=== PATIENT | female | born 1955 | race Caucasian/White ===

== ENCOUNTER 2017-09-03 14:48 | Observation (INO) | payer MEDICAID ==
[~2017-09-03] VITALS: Ht 157.5 cm; Wt 65.8 kg
[~2017-09-03 14:48] MED LIST: ALBU0.084; ATEN50TA PO; CARI250T; ENAL5TAB85; FLUT100M7; HYDR-4683; LOSA100T22 PO; MECL12.554
[2017-09-03] MEDS ORDERED: LEVOFLOXACIN 500MG 100 ML IV ONE (15:30)
[2017-09-03] MEDS ORDERED: ALBUTEROL SULF 2.5 MG/0.5ML(0.5%) NEB SOLN HHN ONE (15:30)
[2017-09-03] MEDS ORDERED: cefTRIAXone 1GM/10ml IVPUSH 10 ML IV ONE (15:30)
[2017-09-03] MEDS ORDERED: methylPREDNISolone SOD SUCC 125 MG/2 ML VL IV ONE (15:30)
[2017-09-03] MEDS ORDERED: IPRATROPIUM BROM 0.5 MG/2.5ML INH SOL HHN ONE (15:30)
[2017-09-03 16:20] LABS: Basophils # (auto) 0 uL; Basophils % (auto) 0.1 % (0.0-2.0); Eosinophils # (auto) 0 uL; Hematocrit 44.7 % (36.0-46.0); Hemoglobin 14.9 g/dL (12.2-16.2); Lymphocytes # (auto) 0.5 uL; Mean Corpuscular Hemoglobin 33.4 pg (28.0-32.0); Mean Corpuscular Hgb Conc. 33.4 g/dL (32.0-36.0); Monocytes # (auto) 0.3 uL; Monocytes % (auto) 4.6 % (0.0-12.0); Neutrophils # (auto) 6.2 uL; Neutrophils % (auto) 88.3 % (37.0-80.0); Platelet Count (auto) 162 10^3/uL (140-450); White Blood Cell 7.1 10^3/uL (4.4-10.8)
[2017-09-03 16:40] LABS: B-Type Natriuretic Peptide 97.47 pg/mL (0-100)
[2017-09-03 16:46] LABS: Anion Gap 9 (5-15); Carbon Dioxide 21 mmol/L (21-32); Chloride 106 mmol/L (98-107); Potassium 4.8 mmol/L (3.5-5.1); Sodium 136 mmol/L (136-145)
[2017-09-03 16:47] LABS: Alkaline Phosphatase 75 U/L (45-117); Aspartate Aminotransferase 38 U/L (15-37); BUN/Creatinine Ratio 28.9; Blood Urea Nitrogen 24 mg/dL (7-18); GFR African American 90 mL/min; GFR Non-African American 74 mL/min; Glucose 125 mg/dL (74-106)
[2017-09-03 16:48] LABS: Albumin 3.3 g/dL (3.4-5.0); Bilirubin, Total 0.3 mg/dL (0.2-1.0); Calcium 8.2 mg/dL (8.5-10.1); Magnesium 2.1 mg/dL (1.6-2.6); Total Protein 7.3 g/dL (6.4-8.2)
[2017-09-03 16:55] LABS: Temperature: 23.1 C (20.0-25.0)
[2017-09-03 17:49] VITALS: BP 109/47
[2017-09-03] MEDS ORDERED: ACETAMINOPHEN 650 mg PER 20 mL UD PO ONE (18:30)
[2017-09-03] MEDS ORDERED: ACETAMINOPHEN 325 MG TAB PO ONE (18:30)
== END 2017-09-03 19:06 | disposition home or self-care (01) | DRG 143 ==
LOC: EDBD 14:48 → ER 14:55 → OVERFLOW 15:22 → ER 19:05
PROVIDERS: ADMIT Family Medicine; ATTEND Family Medicine
DX: J80 Acute respiratory distress syndrome (principal); J44.1 Chronic obstructive pulmonary disease with (acute) exacerbation; I10 Essential (primary) hypertension; I70.0 Atherosclerosis of aorta; F32.9 Major depressive disorder, single episode, unspecified; Z82.49 Family history of ischemic heart disease and other diseases of the circulatory system; Z87.891 Personal history of nicotine dependence; Z98.51 Tubal ligation status
CPT/HCPCS: 36415; 71010; 80053; 83605; 83735; 83880; 84484; 85025; 85379; 87040; 94640; 96365; 96375; 99285; G0378; J1956; J2930

== ENCOUNTER 2022-12-19 14:58 | Inpatient (IN) | payer OTHER ==
[~2022-12-19] VITALS: Ht 157.5 cm; Wt 59.8 kg
[~2022-12-19 14:58] MED LIST changes: -HYDR-4683; +HYDR-4833; +MECL12.514; -MECL12.554
[2022-12-19] MEDS: HYDROcodone-ACET 5/325MG TAB PO PRN (21:00)
[2022-12-19] MEDS ORDERED: ALBUTEROL SULF 2.5 MG/0.5ML(0.5%) NEB SOLN NEB PRN (21:00)
[2022-12-19 22:00] VITALS: BP 130/61
[2022-12-19] MEDS ORDERED: CARISOPRODOL 350 MG TAB PO PRN (23:00)
[2022-12-19] MEDS ORDERED: ONDANSETRON HCL 4 MG/2 ML VIAL IV PRN (23:00)
[2022-12-19] MEDS ORDERED: HYDROcodone-ACET 5/325MG TAB PO PRN (23:00)
[2022-12-19] MEDS ORDERED: SODIUM CHLORIDE 0.9% 1,000 ML IV SCH (23:00)
[2022-12-19] MEDS ORDERED: DOCUSATE SOD 100 MG CAP PO PRN (23:00)
[2022-12-19 23:38] VITALS: BP 130/61
[2022-12-20] MEDS: IPRATROPIUM BROM 0.5 MG/2.5ML INH SOL NEB PRN (00:10)
[2022-12-20] MEDS: LEVALBUTEROL HCL 1.25 MG/3 ML NEB NEB SCH ×5 (00:10→23:25)
[2022-12-20] MEDS: methylPREDNISolone SOD SUCC 40 MG/ML VL IV SCH ×5 (00:24→23:27)
[2022-12-20 05:00] VITALS: BP 147/65
[2022-12-20] MEDS ORDERED: CARISOPRODOL 350 MG TAB PO PRN (05:15)
[2022-12-20 05:51] LABS: Basophils # (auto) 0 10 ^3/uL (0-0.2); Basophils % (auto) 0.1 % (0.0-2.0); Eosinophils # (auto) 0 10 ^3/uL (0-0.8); Lymphocytes # (auto) 0.6 10 ^3/uL (0.4-5.4); Monocytes # (auto) 0.4 10 ^3/uL (0-1.3); Monocytes % (auto) 2.6 % (0.0-12.0); Nucleated Red Blood Cells % 0.2 %
[2022-12-20 05:54] LABS: Hematocrit 44.4 % (36.0-46.0); Hemoglobin 13.2 g/dL (12.2-16.2); Lymphocytes % (auto) 4.4 % (10.0-50.0); Mean Corpuscular Hgb Conc. 29.8 g/dL (32.0-36.0); Neutrophils # (auto) 13.1 10 ^3/uL (1.6-8.6); Neutrophils % (auto) 92.9 % (37.0-80.0); Red Blood Cells 5.29 10^6/uL (4.0-5.20); Red Cell Distribution Width 17.6 % (11.8-14.3); White Blood Cell 14.1 10^3/uL (4.4-10.8)
[2022-12-20 06:10] LABS: Calcium 9.3 mg/dL (8.5-10.1); Potassium 4.7 mmol/L (3.5-5.1)
[2022-12-20 06:13] LABS: BUN/Creatinine Ratio 39.7 (10.0-20.0)
[2022-12-20 06:16] LABS: Bilirubin, Total 0.4 mg/dL (0.2-1.0); Total Protein 7.3 g/dL (6.4-8.2)
[2022-12-20 07:12] LABS: Urine WBC None Seen /hpf (0 - 5)
[2022-12-20 07:31] LABS: Urine Bacteria NONE SEEN /hpf (None Seen); Urine Blood Negative /uL (Negative); Urine Hyaline Cast FEW /lpf (0 - 2); Urine Mucus FEW (None Seen); Urine Specific Gravity 1.025 (1.001-1.035)
[2022-12-20 08:44] VITALS: BP 136/54
[2022-12-20] MEDS: cefTRIAXone 1GM/50ML D5W 50 ML IV SCH (09:05)
[2022-12-20] MEDS: ASPirin 81 mg TAB PO SCH (09:45)
[2022-12-20] MEDS: PANTOPRAZOLE 40 MG TAB PO SCH (09:45)
[2022-12-20] MEDS ORDERED: amLODIPine BESYLATE 5 MG TAB PO SCH (10:00)
[2022-12-20] MEDS ORDERED: ENOXAPARIN SOD 40 MG/0.4 ML SYRINGE SC SCH (10:00)
[2022-12-20] MEDS ORDERED: FUROSEMIDE 40 MG/4 ML VIAL IV ONE (11:15)
[2022-12-20 12:17] VITALS: BP 176/65
[2022-12-20] MEDS ORDERED: IOHEXOL 350 MG/ML 100ML IJ ONE (13:04)
[2022-12-20] MEDS: METOPROLOL TARTRATE 25 MG TAB PO SCH ×2 (13:07→22:00)
[2022-12-20] MEDS: HYDROcodone-ACET 5/325MG TAB PO PRN ×2 (13:35→20:55)
[2022-12-20 13:40] VITALS: BP 131/82
[2022-12-20] MEDS ORDERED: ADENOSINE 6 MG/2 ML INJ IV ONE (13:45)
[2022-12-20] MEDS ORDERED: METOPROLOL TARTRATE 1MG/1ML-5ML VIAL IV ONE (13:50)
[2022-12-20] MEDS ORDERED: dilTIAZem 25 MG/5 ML VIAL IV ONE ×2 (14:02→14:15)
[2022-12-20] MEDS ORDERED: dilTIAZem HCL 60 MG TAB PO ONE (14:15)
[2022-12-20] MEDS ORDERED: HEPARIN SODIUM (PORCINE) 5000 UNITS/ML 1ML VIAL IV ONE ×2 (14:45→23:30)
[2022-12-20] MEDS ORDERED: HEPARIN DRIP/D5W 100UNITS/ML 250 ML IV SCH ×2 (14:45→23:30)
[2022-12-20] MEDS ORDERED: dilTIAZem HCL 60 MG TAB ONE (14:55)
[2022-12-20 15:23] LABS: Basophils # (auto) 0 10 ^3/uL (0-0.2); Eosinophils # (auto) 0 10 ^3/uL (0-0.8); Hemoglobin 12.7 g/dL (12.2-16.2); Lymphocytes # (auto) 0.3 10 ^3/uL (0.4-5.4); Monocytes # (auto) 0.4 10 ^3/uL (0-1.3); Monocytes % (auto) 4.7 % (0.0-12.0); Red Cell Distribution Width 17.6 % (11.8-14.3)
[2022-12-20 15:25] LABS: Basophils % (auto) 0.1 % (0.0-2.0); Hematocrit 41.8 % (36.0-46.0); Lymphocytes % (auto) 3.7 % (10.0-50.0); Mean Corpuscular Hemoglobin 24.7 pg (28.0-32.0); Mean Corpuscular Hgb Conc. 30.4 g/dL (32.0-36.0); Mean Corpuscular Volume 81.3 fL (80.0-100.0); Neutrophils # (auto) 8.6 10 ^3/uL (1.6-8.6); Neutrophils % (auto) 91.5 % (37.0-80.0); Nucleated Red Blood Cells % 0.3 %; Red Blood Cells 5.14 10^6/uL (4.0-5.20); White Blood Cell 9.4 10^3/uL (4.4-10.8)
[2022-12-20 16:24] LABS: INR 1.02 (0.9-1.15); Partial Thromboplastin Time 27.1 sec (24.6-33.4)
[2022-12-20 16:37] VITALS: BP 127/61
[2022-12-20] MEDS: dilTIAZem HCL 60 MG TAB PO SCH ×2 (17:03→23:27)
[2022-12-20] MEDS: dilTIAZem 25 MG/5 ML VIAL IV PRN (20:38)
[2022-12-20 22:00] VITALS: BP 120/46
[2022-12-20 23:14] LABS: INR 1.03 (0.9-1.15); Partial Thromboplastin Time 30.1 sec (24.6-33.4)
[2022-12-21] MEDS ORDERED: HEPARIN SODIUM (PORCINE) 5000 UNITS/ML 1ML VIAL IV ONE
[2022-12-21 05:00] VITALS: BP 142/56
[2022-12-21] MEDS: methylPREDNISolone SOD SUCC 40 MG/ML VL IV SCH ×4 (06:18→23:43)
[2022-12-21] MEDS: METOPROLOL TARTRATE 25 MG TAB PO SCH ×3 (06:18→22:37)
[2022-12-21] MEDS: dilTIAZem HCL 60 MG TAB PO SCH ×4 (06:18→23:44)
[2022-12-21 06:36] LABS: Basophils # (auto) 0 10 ^3/uL (0-0.2); Eosinophils # (auto) 0 10 ^3/uL (0-0.8); Lymphocytes # (auto) 0.4 10 ^3/uL (0.4-5.4)
[2022-12-21 06:39] LABS: Hematocrit 41.6 % (36.0-46.0); Hemoglobin 13.1 g/dL (12.2-16.2); Mean Corpuscular Hemoglobin 25.6 pg (28.0-32.0); Mean Corpuscular Hgb Conc. 31.5 g/dL (32.0-36.0); Mean Corpuscular Volume 81.4 fL (80.0-100.0); Monocytes # (auto) 0.3 10 ^3/uL (0-1.3); Monocytes % (auto) 3.2 % (0.0-12.0); Neutrophils # (auto) 9.8 10 ^3/uL (1.6-8.6); Neutrophils % (auto) 92.8 % (37.0-80.0); Nucleated Red Blood Cells % 0.1 %; Red Blood Cells 5.11 10^6/uL (4.0-5.20); Red Cell Distribution Width 17.5 % (11.8-14.3); White Blood Cell 10.6 10^3/uL (4.4-10.8)
[2022-12-21 06:45] LABS: BUN/Creatinine Ratio 51.7 (10.0-20.0); Calcium 9.3 mg/dL (8.5-10.1); Magnesium 2.2 mg/dL (1.6-2.6); Potassium 4.7 mmol/L (3.5-5.1)
[2022-12-21] MEDS: LEVALBUTEROL HCL 1.25 MG/3 ML NEB NEB SCH ×3 (06:55→18:17)
[2022-12-21] MEDS: IPRATROPIUM BROM 0.5 MG/2.5ML INH SOL NEB PRN ×3 (06:55→18:15)
[2022-12-21 07:06] LABS: INR 1.05 (0.9-1.15)
[2022-12-21 07:16] LABS: Partial Thromboplastin Time 134.1 sec (24.6-33.4)
[2022-12-21 08:30] VITALS: BP 148/70
[2022-12-21] MEDS: cefTRIAXone 1GM/50ML D5W 50 ML IV SCH (08:37)
[2022-12-21 08:58] VITALS: BP 137/62
[2022-12-21] MEDS: PANTOPRAZOLE 40 MG TAB PO SCH (10:18)
[2022-12-21] MEDS: ASPirin 81 mg TAB PO SCH (10:18)
[2022-12-21] MEDS: FUROSEMIDE 40 MG/4 ML VIAL IV SCH (10:19)
[2022-12-21] MEDS: HYDROcodone-ACET 5/325MG TAB PO PRN ×3 (10:26→22:51)
[2022-12-21] MEDS ORDERED: AZITHROMYCIN 500MG/ 250ML 250 ML IV ONE (10:45)
[2022-12-21 10:54] LABS: Partial Thromboplastin Time 43.5 sec (24.6-33.4)
[2022-12-21] MEDS: DOXYCYCLINE 100MG/250ML 250 ML IV SCH ×2 (12:19→22:39)
[2022-12-21 13:24] VITALS: BP 112/59
[2022-12-21 16:35] LABS: INR 1.01 (0.9-1.15); Partial Thromboplastin Time 42.8 sec (24.6-33.4)
[2022-12-21 17:07] VITALS: BP 134/77
[2022-12-21] MEDS ORDERED: HEPARIN DRIP/D5W 100UNITS/ML 250 ML IV SCH (17:45)
[2022-12-21 22:00] VITALS: BP 128/62
[2022-12-21] MEDS: dilTIAZem 25 MG/5 ML VIAL IV PRN (22:38)
[2022-12-22] VITALS (7 sets, daily range): BP systolic 124–145; BP diastolic 49–74
[2022-12-22] MEDS: IPRATROPIUM BROM 0.5 MG/2.5ML INH SOL NEB PRN ×3 (00:51→18:48)
[2022-12-22] MEDS: LEVALBUTEROL HCL 1.25 MG/3 ML NEB NEB SCH ×4 (00:51→18:49)
[2022-12-22 05:42] LABS: Basophils # (auto) 0 10 ^3/uL (0-0.2); Eosinophils # (auto) 0 10 ^3/uL (0-0.8); Hematocrit 42.4 % (36.0-46.0); Hemoglobin 12.8 g/dL (12.2-16.2); Lymphocytes # (auto) 0.4 10 ^3/uL (0.4-5.4); Mean Corpuscular Hgb Conc. 30.2 g/dL (32.0-36.0); Mean Corpuscular Volume 82.9 fL (80.0-100.0); Monocytes # (auto) 0.5 10 ^3/uL (0-1.3); Monocytes % (auto) 4.7 % (0.0-12.0); Neutrophils # (auto) 10.2 10 ^3/uL (1.6-8.6); Neutrophils % (auto) 91.3 % (37.0-80.0); Nucleated Red Blood Cells % 0.1 %; Red Blood Cells 5.12 10^6/uL (4.0-5.20); Red Cell Distribution Width 17.3 % (11.8-14.3); White Blood Cell 11.2 10^3/uL (4.4-10.8)
[2022-12-22 05:56] LABS: INR 1.02 (0.9-1.15); Partial Thromboplastin Time 62.9 sec (24.6-33.4)
[2022-12-22 05:57] LABS: Calcium 9.5 mg/dL (8.5-10.1); Magnesium 2.1 mg/dL (1.6-2.6); Potassium 5.1 mmol/L (3.5-5.1)
[2022-12-22] MEDS: methylPREDNISolone SOD SUCC 40 MG/ML VL IV SCH ×3 (06:08→17:58)
[2022-12-22] MEDS: dilTIAZem HCL 60 MG TAB PO SCH ×4 (06:09→23:43)
[2022-12-22] MEDS: METOPROLOL TARTRATE 25 MG TAB PO SCH ×3 (06:09→22:05)
[2022-12-22] MEDS: HYDROcodone-ACET 5/325MG TAB PO PRN ×3 (07:10→23:42)
[2022-12-22] MEDS: cefTRIAXone 1GM/50ML D5W 50 ML IV SCH (08:21)
[2022-12-22] MEDS: PANTOPRAZOLE 40 MG TAB PO SCH (09:51)
[2022-12-22] MEDS: ASPirin 81 mg TAB PO SCH (09:52)
[2022-12-22] MEDS: FUROSEMIDE 40 MG/4 ML VIAL IV SCH (09:52)
[2022-12-22] MEDS ORDERED: AZITHROMYCIN 500MG/ 250ML 250 ML IV SCH (10:00)
[2022-12-22] MEDS ORDERED: APIXABAN 5 MG TAB PO ONE (10:30)
[2022-12-22] MEDS: DOXYCYCLINE 100MG/250ML 250 ML IV SCH ×2 (11:01→22:05)
[2022-12-22 13:27] LABS: INR 1.06 (0.9-1.15); Partial Thromboplastin Time 53.3 sec (24.6-33.4)
[2022-12-22] MEDS: ACETYLCYSTEINE 10 %(100MG/ML) SOL 4ML NEB SCH ×2 (14:16→18:49)
[2022-12-22 16:14] LABS: Free T4 (Free Thyroxine) 1.04 ng/dL (0.89-1.76); T3 Total 0.78 ng/mL (0.60-1.81)
[2022-12-22 16:25] LABS: Folate (Folic Acid) 11.79 ng/mL (5.38-24)
[2022-12-22 20:04] LABS: Alcohol, Urine < 3.0 mg/dL (0-10); Amphetamine Screen, Urine NEGATIVE (NEGATIVE); Barbiturate Scree,Urine NEGATIVE (NEGATIVE); Benzodiazephine Screen, Urine NEGATIVE (NEGATIVE); Cannabinoid Screen, Urine NEGATIVE (NEGATIVE); Cocaine Screen, Urine NEGATIVE (NEGATIVE); Opiate Scree,Urine NEGATIVE (NEGATIVE); Phencyclidine Screen, Urine NEGATIVE (NEGATIVE)
[2022-12-22] MEDS: APIXABAN 5 MG TAB PO SCH (22:05)
[2022-12-23] VITALS (35 sets, daily range): BP systolic 113–212; BP diastolic 61–138
[2022-12-23] MEDS: IPRATROPIUM BROM 0.5 MG/2.5ML INH SOL NEB PRN ×3 (00:23→11:51)
[2022-12-23] MEDS: HYDROcodone-ACET 5/325MG TAB PO PRN ×3 (04:53→19:05)
[2022-12-23] MEDS: methylPREDNISolone SOD SUCC 40 MG/ML VL IV SCH ×5 (05:58→23:28)
[2022-12-23] MEDS: METOPROLOL TARTRATE 25 MG TAB PO SCH ×3 (05:59→21:02)
[2022-12-23] MEDS: dilTIAZem HCL 60 MG TAB PO SCH ×4 (05:59→23:36)
[2022-12-23 06:15] LABS: Basophils # (auto) 0 10 ^3/uL (0-0.2); Eosinophils # (auto) 0 10 ^3/uL (0-0.8); Monocytes # (auto) 0.3 10 ^3/uL (0-1.3); Nucleated Red Blood Cells % 0.2 %
[2022-12-23 06:18] LABS: Hematocrit 43.8 % (36.0-46.0); Hemoglobin 13.2 g/dL (12.2-16.2); Lymphocytes # (auto) 0.4 10 ^3/uL (0.4-5.4); Lymphocytes % (auto) 6.7 % (10.0-50.0); Mean Corpuscular Hemoglobin 24.8 pg (28.0-32.0); Mean Corpuscular Hgb Conc. 30.2 g/dL (32.0-36.0); Monocytes % (auto) 4.3 % (0.0-12.0); Neutrophils # (auto) 5.8 10 ^3/uL (1.6-8.6); Red Blood Cells 5.33 10^6/uL (4.0-5.20); Red Cell Distribution Width 17.8 % (11.8-14.3); White Blood Cell 6.5 10^3/uL (4.4-10.8)
[2022-12-23] MEDS: LEVALBUTEROL HCL 1.25 MG/3 ML NEB NEB SCH ×5 (06:38→21:31)
[2022-12-23] MEDS: ACETYLCYSTEINE 10 %(100MG/ML) SOL 4ML NEB SCH ×5 (06:38→21:31)
[2022-12-23 06:43] LABS: Albumin 3.1 g/dL (3.4-5.0); BUN/Creatinine Ratio 48.1 (10.0-20.0); Bilirubin, Total 0.5 mg/dL (0.2-1.0); Calcium 9.5 mg/dL (8.5-10.1); Magnesium 2.1 mg/dL (1.6-2.6); Phosphorus 2.6 mg/dL (2.5-4.90); Total Protein 7.5 g/dL (6.4-8.2)
[2022-12-23 07:36] LABS: Potassium 4.1 mmol/L (3.5-5.1)
[2022-12-23] MEDS: cefTRIAXone 1GM/50ML D5W 50 ML IV SCH (08:00)
[2022-12-23] MEDS: PANTOPRAZOLE 40 MG TAB PO SCH (09:23)
[2022-12-23] MEDS: APIXABAN 5 MG TAB PO SCH ×2 (09:23→21:02)
[2022-12-23] MEDS: ASPirin 81 mg TAB PO SCH (09:23)
[2022-12-23] MEDS: FUROSEMIDE 40 MG/4 ML VIAL IV SCH (09:23)
[2022-12-23] MEDS: DOXYCYCLINE 100MG/250ML 250 ML IV SCH ×2 (10:34→23:28)
[2022-12-23] MEDS: dilTIAZem 25 MG/5 ML VIAL IV PRN (13:59)
[2022-12-23] MEDS ORDERED: ADENOSINE 6 MG/2 ML INJ IV ONE (14:45)
[2022-12-23] MEDS ORDERED: AMIODARONE HCL 150 MG in D5W 5% 100 ML IV ONE (14:50)
[2022-12-23] MEDS ORDERED: AMIODARONE 450mg/250ml AE 250 ML IV ONE (14:52)
[2022-12-23] MEDS ORDERED: AMIODARONE 450mg/250ml AE 250 ML IV SCH (15:15)
[2022-12-23] MEDS ORDERED: PROMETHAZINE HCL 25 MG/ML 1ML IV ONE (15:30)
[2022-12-23] MEDS ORDERED: MIDAZOLAM HCL 2MG/2ML 2ml VIAL (1mg/ml) IV ONE (16:00)
[2022-12-23] MEDS ORDERED: LIDOCAINE VISCOUS 2% 15ML UD MT ONE (16:00)
[2022-12-23] MEDS ORDERED: fentaNYL CITRATE 100 MCG/2 ML VL IV ONE (16:00)
[2022-12-23] MEDS ORDERED: LIDOCAINE VISCOUS 2% 15ML UD ONE (16:05)
[2022-12-23] MEDS ORDERED: fentaNYL CITRATE 100 MCG/2 ML VL ONE (16:05)
[2022-12-23] MEDS ORDERED: MIDAZOLAM HCL 2MG/2ML 2ml VIAL (1mg/ml) ONE (16:05)
[2022-12-23] MEDS ORDERED: DIGOXIN (250MCG/ML) 2 ML AMPULE ONE (16:18)
[2022-12-23] MEDS ORDERED: FLUMAZENIL 0.1 MG/ML INJ 10ML MDV IV ONE (16:19)
[2022-12-23] MEDS ORDERED: NALOXONE HCL 0.4 MG/ML VIAL ONE (16:19)
[2022-12-23] MEDS ORDERED: NALOXONE HCL 0.4 MG/ML VIAL IV ONE (16:30)
[2022-12-23] MEDS ORDERED: DIGOXIN (250MCG/ML) 2 ML AMPULE IV ONE (16:30)
[2022-12-23] MEDS: AMIODARONE 450mg/250ml AE 250 ML IV SCH (21:15)
[2022-12-23] MEDS: hydrALAZINE HCL 20 MG/ML VL IV PRN (21:41)
[2022-12-23] MEDS: CARISOPRODOL 350 MG TAB PO SCH (21:59)
[2022-12-23] MEDS ORDERED: CARISOPRODOL 350 MG TAB PO SCH (22:00)
[2022-12-23] MEDS ORDERED: TEMAZEPAM 15 MG CAP PO ONE (23:30)
[2022-12-24] VITALS (92 sets, daily range): BP systolic 72–180; BP diastolic 39–98
[2022-12-24] MEDS ORDERED: ETOMIDATE (2MG/ML) 20ML VIAL IV ONE ×2 (01:09→01:15)
[2022-12-24] MEDS ORDERED: SUCCINYLCHOLINE CHLORIDE 20 MG/ML 10ML VIAL IV ONE ×2 (01:10→01:15)
[2022-12-24] MEDS: MIDAZOLAM DRIP 50 mg/50mL 50 ML IV SCH ×6 (01:30→22:31)
[2022-12-24] MEDS ORDERED: MIDAZOLAM DRIP 50 mg/50mL 50 ML IV ONE (01:34)
[2022-12-24] MEDS: dilTIAZem 25 MG/5 ML VIAL IV PRN ×2 (03:39→23:18)
[2022-12-24 05:42] LABS: Basophils # (auto) 0 10 ^3/uL (0-0.2); Basophils % (auto) 0.3 % (0.0-2.0); Eosinophils # (auto) 0 10 ^3/uL (0-0.8); Hematocrit 43.9 % (36.0-46.0); Hemoglobin 13.2 g/dL (12.2-16.2); Lymphocytes # (auto) 0.2 10 ^3/uL (0.4-5.4); Lymphocytes % (auto) 2.4 % (10.0-50.0); Mean Corpuscular Hemoglobin 24.6 pg (28.0-32.0); Mean Corpuscular Hgb Conc. 30.1 g/dL (32.0-36.0); Mean Corpuscular Volume 81.7 fL (80.0-100.0); Neutrophils # (auto) 7.7 10 ^3/uL (1.6-8.6); Neutrophils % (auto) 86.3 % (37.0-80.0); Nucleated Red Blood Cells % 0.1 %; Red Blood Cells 5.37 10^6/uL (4.0-5.20); Red Cell Distribution Width 17.7 % (11.8-14.3); White Blood Cell 8.9 10^3/uL (4.4-10.8)
[2022-12-24] MEDS: methylPREDNISolone SOD SUCC 40 MG/ML VL IV SCH ×4 (05:50→23:16)
[2022-12-24] MEDS: dilTIAZem HCL 60 MG TAB PO SCH ×3 (05:51→18:00)
[2022-12-24] MEDS: METOPROLOL TARTRATE 25 MG TAB PO SCH ×3 (05:51→22:20)
[2022-12-24 05:59] LABS: BUN/Creatinine Ratio 59.6 (10.0-20.0); Calcium 9.7 mg/dL (8.5-10.1); Potassium 3.3 mmol/L (3.5-5.1)
[2022-12-24] MEDS: IPRATROPIUM BROM 0.5 MG/2.5ML INH SOL NEB PRN ×2 (06:13→20:43)
[2022-12-24] MEDS: ACETYLCYSTEINE 10 %(100MG/ML) SOL 4ML NEB SCH ×3 (06:13→20:43)
[2022-12-24] MEDS: LEVALBUTEROL HCL 1.25 MG/3 ML NEB NEB SCH ×3 (06:14→20:43)
[2022-12-24] MEDS: cefTRIAXone 1GM/50ML D5W 50 ML IV SCH (08:32)
[2022-12-24] MEDS: POTASSIUM CHL 20MEQ/100ML 100 ML IV SCH ×5 (08:32→21:00)
[2022-12-24] MEDS: fentaNYL Drip 2500mCg/250mlNS 250 ML IV SCH (08:38)
[2022-12-24] MEDS: APIXABAN 5 MG TAB PO SCH (09:49)
[2022-12-24] MEDS: ASPirin 81 mg TAB PO SCH (09:49)
[2022-12-24] MEDS: CARISOPRODOL 350 MG TAB PO SCH ×2 (09:49→22:21)
[2022-12-24] MEDS: FUROSEMIDE 40 MG/4 ML VIAL IV SCH (09:50)
[2022-12-24] MEDS ORDERED: DIGOXIN 0.125 MG TAB PO SCH (10:00)
[2022-12-24] MEDS ORDERED: PANTOPRAZOLE 40 MG/10 ML VIAL INJ IV SCH (10:00)
[2022-12-24] MEDS: DIGOXIN (250MCG/ML) 2 ML AMPULE IV SCH (10:04)
[2022-12-24 10:38] LABS: INR 1.11 (0.9-1.15); Partial Thromboplastin Time < 20.0 sec (24.6-33.4)
[2022-12-24] MEDS: DOXYCYCLINE 100MG/250ML 250 ML IV SCH ×2 (10:38→22:43)
[2022-12-24] MEDS: AMIODARONE 450mg/250ml AE 250 ML IV SCH (12:13)
[2022-12-24] MEDS ORDERED: METOPROLOL TARTRATE 1MG/1ML-5ML VIAL IV ONE (12:15)
[2022-12-24] MEDS ORDERED: ENOXAPARIN SOD 60 MG/0.6 ML SYRINGE SC ONE (12:15)
[2022-12-24] MEDS: PHENYLEPHRINE INJ 80 MG in SODIUM CHL 0.9% 242 ML IV SCH (18:08)
[2022-12-24] MEDS ORDERED: POTASSIUM CHL 20MEQ/100ML 100 ML IV SCH (18:30)
[2022-12-24] MEDS: ENOXAPARIN SOD 60 MG/0.6 ML SYRINGE SC SCH (22:00)
[2022-12-24] MEDS ORDERED: DOXYCYCLINE 100 MG TAB/CAP PO SCH (22:00)
[2022-12-24] MEDS: PANTOPRAZOLE 40 MG/10 ML VIAL INJ IV SCH (22:14)
[2022-12-25] VITALS (103 sets, daily range): BP systolic 89–155; BP diastolic 35–78
[2022-12-25] MEDS: ACETYLCYSTEINE 10 %(100MG/ML) SOL 4ML NEB SCH ×4 (01:06→19:26)
[2022-12-25] MEDS: LEVALBUTEROL HCL 1.25 MG/3 ML NEB NEB SCH ×4 (01:06→19:26)
[2022-12-25] MEDS: dilTIAZem HCL 60 MG TAB PO SCH ×6 (01:51→22:41)
[2022-12-25] MEDS: MIDAZOLAM DRIP 50 mg/50mL 50 ML IV SCH ×3 (02:47→19:58)
[2022-12-25] MEDS: AMIODARONE 450mg/250ml AE 250 ML IV SCH (03:15)
[2022-12-25 05:30] LABS: Basophils # (auto) 0 10 ^3/uL (0-0.2); Basophils % (auto) 0.1 % (0.0-2.0); Eosinophils # (auto) 0 10 ^3/uL (0-0.8); Hematocrit 41.5 % (36.0-46.0); Mean Corpuscular Hgb Conc. 30.7 g/dL (32.0-36.0); Mean Corpuscular Volume 81.6 fL (80.0-100.0); Red Blood Cells 5.09 10^6/uL (4.0-5.20)
[2022-12-25 05:42] LABS: Eosinophils % (auto) 0.1 % (0.0-7.0); Hemoglobin 12.8 g/dL (12.2-16.2); Lymphocytes # (auto) 0.2 10 ^3/uL (0.4-5.4); Lymphocytes % (auto) 1.8 % (10.0-50.0); Mean Corpuscular Hemoglobin 25.1 pg (28.0-32.0); Monocytes # (auto) 0.6 10 ^3/uL (0-1.3); Monocytes % (auto) 5.4 % (0.0-12.0); Neutrophils # (auto) 9.7 10 ^3/uL (1.6-8.6); Neutrophils % (auto) 92.6 % (37.0-80.0); Nucleated Red Blood Cells % 0.2 %; Red Cell Distribution Width 18.2 % (11.8-14.3); White Blood Cell 10.5 10^3/uL (4.4-10.8)
[2022-12-25 05:47] LABS: INR 1.13 (0.9-1.15); Partial Thromboplastin Time 24.5 sec (24.6-33.4)
[2022-12-25 05:52] LABS: Potassium 4.8 mmol/L (3.5-5.1)
[2022-12-25 05:59] LABS: Albumin 2.4 g/dL (3.4-5.0); BUN/Creatinine Ratio 54.5 (10.0-20.0); Bilirubin, Total 0.4 mg/dL (0.2-1.0); Calcium 8.9 mg/dL (8.5-10.1); Magnesium 1.9 mg/dL (1.6-2.6); Phosphorus 2.7 mg/dL (2.5-4.90)
[2022-12-25] MEDS: IPRATROPIUM BROM 0.5 MG/2.5ML INH SOL NEB PRN ×3 (06:04→19:26)
[2022-12-25] MEDS: METOPROLOL TARTRATE 25 MG TAB PO SCH ×2 (06:45→09:00)
[2022-12-25] MEDS: ENOXAPARIN SOD 60 MG/0.6 ML SYRINGE SC SCH ×2 (07:31→22:00)
[2022-12-25] MEDS: methylPREDNISolone SOD SUCC 40 MG/ML VL IV SCH ×4 (07:40→22:12)
[2022-12-25] MEDS: cefTRIAXone 1GM/50ML D5W 50 ML IV SCH (08:37)
[2022-12-25] MEDS: fentaNYL Drip 2500mCg/250mlNS 250 ML IV SCH ×2 (08:38→22:41)
[2022-12-25] MEDS: PANTOPRAZOLE 40 MG/10 ML VIAL INJ IV SCH ×2 (08:45→22:08)
[2022-12-25] MEDS: DIGOXIN (250MCG/ML) 2 ML AMPULE IV SCH (08:45)
[2022-12-25] MEDS: FUROSEMIDE 40 MG/4 ML VIAL IV SCH (08:46)
[2022-12-25] MEDS: ASPirin 81 mg TAB PO SCH (08:46)
[2022-12-25] MEDS: CARISOPRODOL 350 MG TAB PO SCH ×2 (08:49→22:09)
[2022-12-25] MEDS: DOXYCYCLINE 100MG/250ML 250 ML IV SCH ×2 (08:58→22:12)
[2022-12-25] MEDS ORDERED: ASPirin 81 mg TAB PO SCH (10:00)
[2022-12-25] MEDS ORDERED: MAGNESIUM OXIDE 400 MG TAB PO ONE (11:30)
[2022-12-25] MEDS ORDERED: AMIODARONE HCL 200 MG TAB PO ONE (11:30)
[2022-12-25] MEDS: PROPOFOL 100 ML IV SCH ×2 (14:32→23:39)
[2022-12-25] MEDS ORDERED: LIDOCAINE 2%HCL (LOCAL ANESTH.) INJ 20ML MDV ONE (15:20)
[2022-12-25] MEDS ORDERED: ANGIOMAX 250 MG VIAL IV ONE (15:25)
[2022-12-25] MEDS ORDERED: HEPARIN SODIUM (PORCINE) 5000 UNITS/ML 1ML VIAL ONE (15:25)
[2022-12-25] MEDS ORDERED: VERAPAMIL 2.5MG/ML INJ 2ML VIAL IV ONE (15:26)
[2022-12-25] MEDS ORDERED: SODIUM CHL 0.9% 0 ML ONE (15:26)
[2022-12-25] MEDS: PHENYLEPHRINE INJ 80 MG in SODIUM CHL 0.9% 242 ML IV SCH (17:15)
[2022-12-25] MEDS: MAGNESIUM OXIDE 400 MG TAB PO SCH (22:09)
[2022-12-25] MEDS: AMIODARONE HCL 200 MG TAB PO SCH (22:09)
[2022-12-26] VITALS (104 sets, daily range): BP systolic 86–137; BP diastolic 31–55
[2022-12-26] MEDS: ACETYLCYSTEINE 10 %(100MG/ML) SOL 4ML NEB SCH ×4 (00:11→18:50)
[2022-12-26] MEDS: IPRATROPIUM BROM 0.5 MG/2.5ML INH SOL NEB PRN ×2 (00:11→18:49)
[2022-12-26] MEDS: LEVALBUTEROL HCL 1.25 MG/3 ML NEB NEB SCH ×4 (00:11→18:17)
[2022-12-26] MEDS: MIDAZOLAM DRIP 50 mg/50mL 50 ML IV SCH ×4 (03:34→23:10)
[2022-12-26] MEDS: methylPREDNISolone SOD SUCC 40 MG/ML VL IV SCH ×3 (05:08→17:00)
[2022-12-26] MEDS: dilTIAZem HCL 60 MG TAB PO SCH ×3 (05:09→16:48)
[2022-12-26] MEDS: cefTRIAXone 1GM/50ML D5W 50 ML IV SCH (07:35)
[2022-12-26] MEDS: FUROSEMIDE 40 MG/4 ML VIAL IV SCH (07:35)
[2022-12-26] MEDS: ENOXAPARIN SOD 60 MG/0.6 ML SYRINGE SC SCH ×2 (07:35→22:49)
[2022-12-26] MEDS: MAGNESIUM OXIDE 400 MG TAB PO SCH ×2 (07:36→22:47)
[2022-12-26] MEDS: PANTOPRAZOLE 40 MG/10 ML VIAL INJ IV SCH ×2 (07:36→22:44)
[2022-12-26] MEDS: CARISOPRODOL 350 MG TAB PO SCH ×2 (07:36→22:48)
[2022-12-26] MEDS: ASPirin 81 mg TAB PO SCH (07:36)
[2022-12-26] MEDS: AMIODARONE HCL 200 MG TAB PO SCH ×2 (07:36→22:45)
[2022-12-26] MEDS: DOXYCYCLINE 100MG/250ML 250 ML IV SCH ×2 (09:01→23:10)
[2022-12-26] MEDS: PROPOFOL 100 ML IV SCH (12:04)
[2022-12-26] MEDS: fentaNYL Drip 2500mCg/250mlNS 250 ML IV SCH (12:04)
[2022-12-26] MEDS: PHENYLEPHRINE INJ 80 MG in SODIUM CHL 0.9% 242 ML IV SCH (17:15)
[2022-12-27] VITALS (96 sets, daily range): BP systolic 85–139; BP diastolic 34–64
[2022-12-27] MEDS: methylPREDNISolone SOD SUCC 40 MG/ML VL IV SCH ×4 (00:14→17:37)
[2022-12-27] MEDS: IPRATROPIUM BROM 0.5 MG/2.5ML INH SOL NEB PRN ×4 (01:03→18:55)
[2022-12-27] MEDS: LEVALBUTEROL HCL 1.25 MG/3 ML NEB NEB SCH ×4 (01:04→18:57)
[2022-12-27] MEDS: ACETYLCYSTEINE 10 %(100MG/ML) SOL 4ML NEB SCH ×4 (01:04→18:55)
[2022-12-27] MEDS: fentaNYL Drip 2500mCg/250mlNS 250 ML IV SCH (03:30)
[2022-12-27] MEDS: PROPOFOL 100 ML IV SCH (05:14)
[2022-12-27] MEDS: dilTIAZem HCL 60 MG TAB PO SCH ×4 (06:00→17:05)
[2022-12-27 06:33] LABS: Basophils # (auto) 0 10 ^3/uL (0-0.2); Eosinophils # (auto) 0 10 ^3/uL (0-0.8); Monocytes # (auto) 0.3 10 ^3/uL (0-1.3); Nucleated Red Blood Cells % 0.1 %
[2022-12-27 06:35] LABS: Basophils % (auto) 0.1 % (0.0-2.0); Hematocrit 40.7 % (36.0-46.0); Hemoglobin 12.4 g/dL (12.2-16.2); Lymphocytes # (auto) 0.2 10 ^3/uL (0.4-5.4); Lymphocytes % (auto) 2.7 % (10.0-50.0); Mean Corpuscular Hemoglobin 24.9 pg (28.0-32.0); Mean Corpuscular Hgb Conc. 30.5 g/dL (32.0-36.0); Mean Corpuscular Volume 81.8 fL (80.0-100.0); Monocytes % (auto) 3.9 % (0.0-12.0); Neutrophils # (auto) 6.6 10 ^3/uL (1.6-8.6); Neutrophils % (auto) 93.3 % (37.0-80.0); Red Blood Cells 4.98 10^6/uL (4.0-5.20); Red Cell Distribution Width 18.9 % (11.8-14.3); White Blood Cell 7.1 10^3/uL (4.4-10.8)
[2022-12-27] MEDS: PANTOPRAZOLE 40 MG/10 ML VIAL INJ IV SCH ×2 (07:25→21:45)
[2022-12-27] MEDS: ASPirin 81 mg TAB PO SCH (07:26)
[2022-12-27] MEDS: cefTRIAXone 1GM/50ML D5W 50 ML IV SCH (07:26)
[2022-12-27] MEDS: MAGNESIUM OXIDE 400 MG TAB PO SCH ×2 (07:26→21:46)
[2022-12-27] MEDS: FUROSEMIDE 40 MG/4 ML VIAL IV SCH (07:26)
[2022-12-27] MEDS: AMIODARONE HCL 200 MG TAB PO SCH ×2 (07:26→21:45)
[2022-12-27] MEDS: ENOXAPARIN SOD 60 MG/0.6 ML SYRINGE SC SCH ×2 (07:26→21:46)
[2022-12-27] MEDS: CARISOPRODOL 350 MG TAB PO SCH ×2 (07:27→21:46)
[2022-12-27 07:33] LABS: Potassium 4.2 mmol/L (3.5-5.1)
[2022-12-27 07:55] LABS: Albumin 2.3 g/dL (3.4-5.0); BUN/Creatinine Ratio 59.1 (10.0-20.0); Bilirubin, Total 0.6 mg/dL (0.2-1.0); Calcium 8.6 mg/dL (8.5-10.1); Magnesium 2.8 mg/dL (1.6-2.6); Total Protein 5.2 g/dL (6.4-8.2)
[2022-12-27] MEDS: DOXYCYCLINE 100MG/250ML 250 ML IV SCH ×2 (09:57→23:07)
[2022-12-27] MEDS ORDERED: DOCUSATE SOD 100 MG CAP PO ONE (10:45)
[2022-12-27] MEDS: LACTULOSE 20Gm/30ML SOLN PO SCH ×2 (12:00→17:05)
[2022-12-27] MEDS: PHENYLEPHRINE INJ 80 MG in SODIUM CHL 0.9% 242 ML IV SCH (15:01)
[2022-12-27] MEDS: DOCUSATE SOD 100 MG CAP PO SCH (21:45)
[2022-12-28] VITALS (103 sets, daily range): BP systolic 79–182; BP diastolic 29–129
[2022-12-28] MEDS: ACETYLCYSTEINE 10 %(100MG/ML) SOL 4ML NEB SCH ×4 (00:09→18:29)
[2022-12-28] MEDS: IPRATROPIUM BROM 0.5 MG/2.5ML INH SOL NEB PRN ×4 (00:09→18:29)
[2022-12-28] MEDS: LEVALBUTEROL HCL 1.25 MG/3 ML NEB NEB SCH ×4 (00:09→18:29)
[2022-12-28] MEDS: LACTULOSE 20Gm/30ML SOLN PO SCH ×2 (00:36→06:19)
[2022-12-28] MEDS: dilTIAZem HCL 60 MG TAB PO SCH ×4 (00:37→18:00)
[2022-12-28] MEDS: methylPREDNISolone SOD SUCC 40 MG/ML VL IV SCH ×3 (00:37→21:51)
[2022-12-28] MEDS: PROPOFOL 100 ML IV SCH ×3 (01:50→22:18)
[2022-12-28 06:28] LABS: BUN/Creatinine Ratio 54.8 (10.0-20.0); Calcium 8.6 mg/dL (8.5-10.1); Potassium 4.3 mmol/L (3.5-5.1)
[2022-12-28] MEDS: fentaNYL Drip 2500mCg/250mlNS 250 ML IV SCH ×2 (08:00→20:35)
[2022-12-28] MEDS: MIDAZOLAM DRIP 50 mg/50mL 50 ML IV SCH ×2 (08:00→20:50)
[2022-12-28] MEDS: DOCUSATE SOD 100 MG CAP PO SCH ×2 (10:00→21:52)
[2022-12-28] MEDS: ENOXAPARIN SOD 60 MG/0.6 ML SYRINGE SC SCH (10:00)
[2022-12-28] MEDS: cefTRIAXone 1GM/50ML D5W 50 ML IV SCH (10:10)
[2022-12-28] MEDS: PANTOPRAZOLE 40 MG/10 ML VIAL INJ IV SCH ×2 (10:20→21:51)
[2022-12-28] MEDS: FUROSEMIDE 40 MG/4 ML VIAL IV SCH (10:20)
[2022-12-28] MEDS: AMIODARONE HCL 200 MG TAB PO SCH ×2 (10:21→21:51)
[2022-12-28] MEDS: ASPirin 81 mg TAB PO SCH (10:22)
[2022-12-28] MEDS: CARISOPRODOL 350 MG TAB PO SCH (10:22)
[2022-12-28] MEDS: MAGNESIUM OXIDE 400 MG TAB PO SCH ×2 (10:23→21:51)
[2022-12-28] MEDS: DOXYCYCLINE 100MG/250ML 250 ML IV SCH ×2 (11:13→22:49)
[2022-12-28] MEDS: PHENYLEPHRINE INJ 80 MG in SODIUM CHL 0.9% 242 ML IV SCH (17:15)
[2022-12-29] VITALS (90 sets, daily range): BP systolic 81–191; BP diastolic 30–97
[2022-12-29] MEDS: ACETYLCYSTEINE 10 %(100MG/ML) SOL 4ML NEB SCH ×5 (00:16→23:46)
[2022-12-29] MEDS: IPRATROPIUM BROM 0.5 MG/2.5ML INH SOL NEB PRN ×5 (00:17→23:46)
[2022-12-29] MEDS: LEVALBUTEROL HCL 1.25 MG/3 ML NEB NEB SCH ×5 (00:17→23:46)
[2022-12-29] MEDS: dilTIAZem HCL 60 MG TAB PO SCH ×4 (00:19→19:42)
[2022-12-29 05:32] LABS: Eosinophils # (auto) 0 10 ^3/uL (0-0.8); Lymphocytes # (auto) 0.3 10 ^3/uL (0.4-5.4); Lymphocytes % (auto) 2.2 % (10.0-50.0); Mean Corpuscular Volume 78.4 fL (80.0-100.0)
[2022-12-29 05:34] LABS: Basophils # (auto) 0 10 ^3/uL (0-0.2); Basophils % (auto) 0.2 % (0.0-2.0); Hematocrit 33.9 % (36.0-46.0); Hemoglobin 10.7 g/dL (12.2-16.2); Mean Corpuscular Hemoglobin 24.7 pg (28.0-32.0); Mean Corpuscular Hgb Conc. 31.5 g/dL (32.0-36.0); Monocytes # (auto) 0.8 10 ^3/uL (0-1.3); Monocytes % (auto) 4.9 % (0.0-12.0); Neutrophils # (auto) 14.1 10 ^3/uL (1.6-8.6); Neutrophils % (auto) 92.7 % (37.0-80.0); Nucleated Red Blood Cells % 0.1 %; Red Blood Cells 4.33 10^6/uL (4.0-5.20); Red Cell Distribution Width 18.6 % (11.8-14.3); White Blood Cell 15.2 10^3/uL (4.4-10.8)
[2022-12-29 05:56] LABS: Potassium 3.9 mmol/L (3.5-5.1)
[2022-12-29 06:02] LABS: Albumin 2.2 g/dL (3.4-5.0); BUN/Creatinine Ratio 76.7 (10.0-20.0); Bilirubin, Total 0.8 mg/dL (0.2-1.0); Calcium 8.1 mg/dL (8.5-10.1); Magnesium 2.4 mg/dL (1.6-2.6); Phosphorus 3.3 mg/dL (2.5-4.90); Total Protein 4.8 g/dL (6.4-8.2)
[2022-12-29] MEDS: MAGNESIUM OXIDE 400 MG TAB PO SCH ×2 (09:56→21:32)
[2022-12-29] MEDS: methylPREDNISolone SOD SUCC 40 MG/ML VL IV SCH ×2 (09:56→21:32)
[2022-12-29] MEDS: cefTRIAXone 1GM/50ML D5W 50 ML IV SCH (09:56)
[2022-12-29] MEDS: FUROSEMIDE 40 MG/4 ML VIAL IV SCH (09:56)
[2022-12-29] MEDS: PANTOPRAZOLE 40 MG/10 ML VIAL INJ IV SCH ×2 (09:56→21:32)
[2022-12-29] MEDS: ASPirin 81 mg TAB PO SCH (09:56)
[2022-12-29] MEDS: AMIODARONE HCL 200 MG TAB PO SCH ×2 (09:57→21:32)
[2022-12-29] MEDS: DOCUSATE SOD 100 MG CAP PO SCH (10:00)
[2022-12-29] MEDS: DOXYCYCLINE 100MG/250ML 250 ML IV SCH ×2 (15:08→23:15)
[2022-12-29] MEDS ORDERED: ACETAMINOPHEN 650 MG RECT SUPP PR PRN (15:15)
[2022-12-29] MEDS ORDERED: LIDOCAINE 5% TOPICAL PATCH TOP ONE (15:15)
[2022-12-29] MEDS ORDERED: ACETAMINOPHEN 650 mg PER 20.3 mL UD PO PRN (15:15)
[2022-12-29] MEDS ORDERED: ACETAMINOPHEN 650 MG RECT SUPP PR ONE (15:31)
[2022-12-29] MEDS: LIDOCAINE 5% TOPICAL PATCH TOP SCH (15:48)
[2022-12-29] MEDS: PHENYLEPHRINE INJ 80 MG in SODIUM CHL 0.9% 242 ML IV SCH (17:15)
[2022-12-29] MEDS ORDERED: DIGOXIN (250MCG/ML) 2 ML AMPULE IV ONE (21:15)
[2022-12-29] MEDS: dilTIAZem 25 MG/5 ML VIAL IV PRN (21:15)
[2022-12-29] MEDS: DOCUSATE ORAL LIQUID 100 MG/10 ML UD PO SCH (21:32)
[2022-12-29] MEDS ORDERED: AMIODARONE HCL 150 MG in D5W 5% 100 ML IV ONE (22:30)
[2022-12-29] MEDS ORDERED: AMIODARONE 450mg/250ml AE 250 ML IV SCH (22:30)
[2022-12-29] MEDS ORDERED: HYDROcodone-ACET 5/325MG TAB ONE (22:54)
[2022-12-30] VITALS (41 sets, daily range): BP systolic 121–218; BP diastolic 55–125
[2022-12-30] MEDS: dilTIAZem HCL 60 MG TAB PO SCH ×4 (00:01→16:43)
[2022-12-30] MEDS: MIDAZOLAM DRIP 50 mg/50mL 50 ML IV SCH (01:30)
[2022-12-30] MEDS: AMIODARONE 450mg/250ml AE 250 ML IV SCH ×2 (04:30→13:37)
[2022-12-30] MEDS ORDERED: HYDROcodone-ACET 5/325MG TAB ONE (05:41)
[2022-12-30 05:45] LABS: Basophils # (auto) 0.1 10 ^3/uL (0-0.2); Basophils % (auto) 0.4 % (0.0-2.0); Eosinophils # (auto) 0 10 ^3/uL (0-0.8); Lymphocytes # (auto) 0.2 10 ^3/uL (0.4-5.4); Nucleated Red Blood Cells % 0.1 %
[2022-12-30] MEDS ORDERED: HYDROcodone-ACET 5/325MG TAB PO PRN (05:45)
[2022-12-30 05:47] LABS: Hematocrit 37.9 % (36.0-46.0); Hemoglobin 12.1 g/dL (12.2-16.2); Lymphocytes % (auto) 1.4 % (10.0-50.0); Mean Corpuscular Hemoglobin 25.1 pg (28.0-32.0); Mean Corpuscular Volume 78.6 fL (80.0-100.0); Monocytes # (auto) 0.7 10 ^3/uL (0-1.3); Monocytes % (auto) 4.9 % (0.0-12.0); Neutrophils # (auto) 14.1 10 ^3/uL (1.6-8.6); Neutrophils % (auto) 93.3 % (37.0-80.0); Red Blood Cells 4.82 10^6/uL (4.0-5.20); Red Cell Distribution Width 18.7 % (11.8-14.3); White Blood Cell 15.1 10^3/uL (4.4-10.8)
[2022-12-30] MEDS: LEVALBUTEROL HCL 1.25 MG/3 ML NEB NEB SCH ×3 (05:58→18:53)
[2022-12-30] MEDS: IPRATROPIUM BROM 0.5 MG/2.5ML INH SOL NEB PRN ×3 (05:58→18:53)
[2022-12-30] MEDS: ACETYLCYSTEINE 10 %(100MG/ML) SOL 4ML NEB SCH ×3 (05:58→18:53)
[2022-12-30 06:09] LABS: Potassium 3.9 mmol/L (3.5-5.1)
[2022-12-30 06:23] LABS: Albumin 2.6 g/dL (3.4-5.0); BUN/Creatinine Ratio 49.2 (10.0-20.0); Bilirubin, Total 1.2 mg/dL (0.2-1.0); Calcium 8.8 mg/dL (8.5-10.1)
[2022-12-30] MEDS: fentaNYL Drip 2500mCg/250mlNS 250 ML IV SCH (07:26)
[2022-12-30] MEDS: LIDOCAINE 5% TOPICAL PATCH TOP SCH (07:27)
[2022-12-30] MEDS: AMIODARONE HCL 200 MG TAB PO SCH ×2 (07:29→10:00)
[2022-12-30] MEDS: methylPREDNISolone SOD SUCC 40 MG/ML VL IV SCH ×2 (08:11→22:48)
[2022-12-30] MEDS: MAGNESIUM OXIDE 400 MG TAB PO SCH ×2 (08:12→22:49)
[2022-12-30] MEDS: cefTRIAXone 1GM/50ML D5W 50 ML IV SCH (08:12)
[2022-12-30] MEDS: DOCUSATE ORAL LIQUID 100 MG/10 ML UD PO SCH ×2 (08:12→22:49)
[2022-12-30] MEDS: PANTOPRAZOLE 40 MG/10 ML VIAL INJ IV SCH ×2 (08:12→22:48)
[2022-12-30] MEDS: FUROSEMIDE 40 MG/4 ML VIAL IV SCH (08:12)
[2022-12-30] MEDS: ASPirin 81 mg TAB PO SCH (08:12)
[2022-12-30] MEDS: DOXYCYCLINE 100MG/250ML 250 ML IV SCH ×2 (09:32→22:49)
[2022-12-30] MEDS ORDERED: METOPROLOL TARTRATE 1MG/1ML-5ML VIAL IV ONE (09:45)
[2022-12-30] MEDS ORDERED: METOPROLOL TARTRATE 1MG/1ML-5ML VIAL IV PRN (09:45)
[2022-12-30] MEDS ORDERED: DIGOXIN 0.125 MG TAB PO SCH (10:00)
[2022-12-30] MEDS: PHENYLEPHRINE INJ 80 MG in SODIUM CHL 0.9% 242 ML IV SCH (10:53)
[2022-12-30] MEDS: PROPOFOL 100 ML IV SCH (10:53)
[2022-12-30] MEDS ORDERED: SOTALOL HCL 80 MG TAB PO ONE (15:00)
[2022-12-30] MEDS: KETOROLAC TROMETH 30 MG/ML 1ML VIAL IV PRN ×2 (15:33→23:07)
[2022-12-30] MEDS: hydrALAZINE HCL 20 MG/ML VL IV PRN (16:31)
[2022-12-30] MEDS ORDERED: METOPROLOL TARTRATE 25 MG TAB PO SCH (22:00)
[2022-12-30] MEDS: SOTALOL HCL 80 MG TAB PO SCH (22:49)
[2022-12-31] VITALS (8 sets, daily range): BP systolic 132–159; BP diastolic 54–84
[2022-12-31] MEDS: dilTIAZem HCL 60 MG TAB PO SCH ×2 (00:18→06:15)
[2022-12-31] MEDS: LEVALBUTEROL HCL 1.25 MG/3 ML NEB NEB SCH ×4 (06:16→19:06)
[2022-12-31] MEDS: ACETYLCYSTEINE 10 %(100MG/ML) SOL 4ML NEB SCH ×4 (06:16→19:06)
[2022-12-31] MEDS: IPRATROPIUM BROM 0.5 MG/2.5ML INH SOL NEB PRN ×3 (06:16→19:06)
[2022-12-31 06:21] LABS: Potassium 4.1 mmol/L (3.5-5.1)
[2022-12-31] MEDS: KETOROLAC TROMETH 30 MG/ML 1ML VIAL IV PRN ×3 (06:21→20:02)
[2022-12-31 06:23] LABS: Hematocrit 40.7 % (36.0-46.0); Hemoglobin 13.1 g/dL (12.2-16.2); Mean Corpuscular Hemoglobin 25.2 pg (28.0-32.0); Mean Corpuscular Hgb Conc. 32.2 g/dL (32.0-36.0); Mean Corpuscular Volume 78.2 fL (80.0-100.0); Red Cell Distribution Width 18.8 % (11.8-14.3)
[2022-12-31 06:27] LABS: Basophils % (manual) 0 (0.0-2.0); Blast Cells 0; Eosinophils % (manual) 0 (0-7); Myelocytes % 0; Promyelocytes % 0; Reactive Lymphocytes 0
[2022-12-31 06:34] LABS: Albumin 2.4 g/dL (3.4-5.0); BUN/Creatinine Ratio 53.7 (10.0-20.0); Bilirubin, Total 1.5 mg/dL (0.2-1.0); Calcium 8.7 mg/dL (8.5-10.1); Magnesium 2.4 mg/dL (1.6-2.6)
[2022-12-31 08:46] LABS: Band Neutrophils % (manual) 4; Lymphocytes % (manual) 1 (10.0-50.0); Metamyelocytes % 2; Monocytes % (manual) 8 (0-12)
[2022-12-31] MEDS: cefTRIAXone 1GM/50ML D5W 50 ML IV SCH (09:20)
[2022-12-31] MEDS: PANTOPRAZOLE 40 MG/10 ML VIAL INJ IV SCH ×2 (09:20→22:10)
[2022-12-31] MEDS: MAGNESIUM OXIDE 400 MG TAB PO SCH ×2 (09:21→22:10)
[2022-12-31] MEDS: methylPREDNISolone SOD SUCC 40 MG/ML VL IV SCH (09:21)
[2022-12-31] MEDS: ASPirin 81 mg TAB PO SCH (09:21)
[2022-12-31] MEDS: DOCUSATE ORAL LIQUID 100 MG/10 ML UD PO SCH ×2 (09:22→22:10)
[2022-12-31] MEDS: FUROSEMIDE 40 MG/4 ML VIAL IV SCH (09:22)
[2022-12-31] MEDS: SOTALOL HCL 80 MG TAB PO SCH ×2 (09:22→23:07)
[2022-12-31] MEDS: LIDOCAINE 5% TOPICAL PATCH TOP SCH (09:26)
[2022-12-31] MEDS: DOXYCYCLINE 100MG/250ML 250 ML IV SCH ×2 (11:53→23:07)
[2022-12-31] MEDS ORDERED: diphenhdrAMINE HCL 25 MG CAP PO ONE (17:30)
[2022-12-31] MEDS: APIXABAN 5 MG TAB PO SCH (22:10)
[2022-12-31] MEDS: TEMAZEPAM 15 MG CAP PO PRN (22:30)
[2023-01-01] MEDS ORDERED: MORPHINE SULFATE INJ 2 MG/ml SYRG IV PRN (01:45)
[2023-01-01 05:00] VITALS: BP 158/68
[2023-01-01 06:44] LABS: Basophils # (auto) 0.1 10 ^3/uL (0-0.2); Basophils % (auto) 0.7 % (0.0-2.0); Eosinophils # (auto) 0 10 ^3/uL (0-0.8); Eosinophils % (auto) 0.1 % (0.0-7.0); Hematocrit 36.5 % (36.0-46.0); Hemoglobin 11.6 g/dL (12.2-16.2); Lymphocytes # (auto) 1.3 10 ^3/uL (0.4-5.4); Lymphocytes % (auto) 8.5 % (10.0-50.0); Mean Corpuscular Hemoglobin 24.6 pg (28.0-32.0); Mean Corpuscular Hgb Conc. 31.7 g/dL (32.0-36.0); Mean Corpuscular Volume 77.5 fL (80.0-100.0); Monocytes # (auto) 1.8 10 ^3/uL (0-1.3); Monocytes % (auto) 11.9 % (0.0-12.0); Neutrophils # (auto) 12.1 10 ^3/uL (1.6-8.6); Neutrophils % (auto) 78.8 % (37.0-80.0); Red Blood Cells 4.71 10^6/uL (4.0-5.20); Red Cell Distribution Width 18.4 % (11.8-14.3); White Blood Cell 15.3 10^3/uL (4.4-10.8)
[2023-01-01 07:33] LABS: Albumin 2.1 g/dL (3.4-5.0); Calcium 8.5 mg/dL (8.5-10.1); Potassium 3.4 mmol/L (3.5-5.1)
[2023-01-01 07:38] LABS: BUN/Creatinine Ratio 62.7 (10.0-20.0)
[2023-01-01] MEDS: LEVALBUTEROL HCL 1.25 MG/3 ML NEB NEB SCH ×3 (07:45→18:35)
[2023-01-01] MEDS: IPRATROPIUM BROM 0.5 MG/2.5ML INH SOL NEB PRN ×3 (07:45→18:34)
[2023-01-01] MEDS: ACETYLCYSTEINE 10 %(100MG/ML) SOL 4ML NEB SCH ×3 (07:45→18:35)
[2023-01-01 09:00] VITALS: BP 138/59
[2023-01-01] MEDS ORDERED: POTASSIUM EFFERVESENT TAB 25 MEQ PO ONE (09:00)
[2023-01-01] MEDS: PANTOPRAZOLE 40 MG/10 ML VIAL INJ IV SCH ×2 (10:28→20:55)
[2023-01-01] MEDS: cefTRIAXone 1GM/50ML D5W 50 ML IV SCH (10:28)
[2023-01-01] MEDS: methylPREDNISolone SOD SUCC 40 MG/ML VL IV SCH (10:29)
[2023-01-01] MEDS: amLODIPine BESYLATE 5 MG TAB PO SCH (10:31)
[2023-01-01] MEDS: APIXABAN 5 MG TAB PO SCH ×2 (10:31→20:56)
[2023-01-01] MEDS: SOTALOL HCL 80 MG TAB PO SCH ×2 (10:32→21:29)
[2023-01-01] MEDS: MAGNESIUM OXIDE 400 MG TAB PO SCH ×2 (10:33→20:56)
[2023-01-01] MEDS: DOXYCYCLINE 100MG/250ML 250 ML IV SCH ×2 (10:33→22:51)
[2023-01-01] MEDS: LIDOCAINE 5% TOPICAL PATCH TOP SCH (10:33)
[2023-01-01] MEDS: FUROSEMIDE 40 MG/4 ML VIAL IV SCH (10:34)
[2023-01-01] MEDS: DOCUSATE ORAL LIQUID 100 MG/10 ML UD PO SCH ×2 (10:40→20:56)
[2023-01-01 13:00] VITALS: BP 101/55
[2023-01-01 17:00] VITALS: BP 91/49
[2023-01-01] MEDS ORDERED: POTASSIUM CHL 20 Meq TABLET PO ONE (17:30)
[2023-01-01] MEDS: TEMAZEPAM 15 MG CAP PO PRN (20:56)
[2023-01-01] MEDS: KETOROLAC TROMETH 30 MG/ML 1ML VIAL IV PRN (20:58)
[2023-01-01 22:00] VITALS: BP 101/46
[2023-01-02] VITALS (41 sets, daily range): BP systolic 41–146; BP diastolic 13–121
[2023-01-02] MEDS: KETOROLAC TROMETH 30 MG/ML 1ML VIAL IV PRN ×3 (05:46→15:21)
[2023-01-02] MEDS: ACETYLCYSTEINE 10 %(100MG/ML) SOL 4ML NEB SCH ×3 (06:08→18:31)
[2023-01-02] MEDS: IPRATROPIUM BROM 0.5 MG/2.5ML INH SOL NEB PRN ×2 (06:08→12:40)
[2023-01-02] MEDS: LEVALBUTEROL HCL 1.25 MG/3 ML NEB NEB SCH ×3 (06:08→18:31)
[2023-01-02 06:25] LABS: Basophils # (auto) 0 10 ^3/uL (0-0.2); Hemoglobin 11.5 g/dL (12.2-16.2); Nucleated Red Blood Cells % 0.1 %; White Blood Cell 11.8 10^3/uL (4.4-10.8)
[2023-01-02 06:28] LABS: Basophils % (auto) 0.1 % (0.0-2.0); Eosinophils # (auto) 0.1 10 ^3/uL (0-0.8); Eosinophils % (auto) 0.7 % (0.0-7.0); Hematocrit 37.5 % (36.0-46.0); Lymphocytes # (auto) 1.4 10 ^3/uL (0.4-5.4); Lymphocytes % (auto) 12.2 % (10.0-50.0); Mean Corpuscular Hemoglobin 24.7 pg (28.0-32.0); Mean Corpuscular Hgb Conc. 30.6 g/dL (32.0-36.0); Mean Corpuscular Volume 80.7 fL (80.0-100.0); Monocytes # (auto) 1.4 10 ^3/uL (0-1.3); Neutrophils # (auto) 8.8 10 ^3/uL (1.6-8.6); Red Blood Cells 4.64 10^6/uL (4.0-5.20); Red Cell Distribution Width 18.2 % (11.8-14.3)
[2023-01-02 06:39] LABS: Albumin 2.1 g/dL (3.4-5.0); BUN/Creatinine Ratio 56.1 (10.0-20.0); Calcium 8.3 mg/dL (8.5-10.1); Potassium 3.3 mmol/L (3.5-5.1)
[2023-01-02 06:41] LABS: Bilirubin, Total 0.7 mg/dL (0.2-1.0); Total Protein 4.9 g/dL (6.4-8.2)
[2023-01-02] MEDS: cefTRIAXone 1GM/50ML D5W 50 ML IV SCH (08:54)
[2023-01-02] MEDS: PANTOPRAZOLE 40 MG/10 ML VIAL INJ IV SCH (09:11)
[2023-01-02] MEDS: FUROSEMIDE 40 MG/4 ML VIAL IV SCH (09:11)
[2023-01-02] MEDS: SOTALOL HCL 80 MG TAB PO SCH ×2 (09:12→22:00)
[2023-01-02] MEDS: methylPREDNISolone SOD SUCC 40 MG/ML VL IV SCH (09:12)
[2023-01-02] MEDS: DOCUSATE ORAL LIQUID 100 MG/10 ML UD PO SCH ×2 (09:12→22:00)
[2023-01-02] MEDS: LIDOCAINE 5% TOPICAL PATCH TOP SCH (09:13)
[2023-01-02] MEDS: MAGNESIUM OXIDE 400 MG TAB PO SCH ×2 (09:13→22:00)
[2023-01-02] MEDS: APIXABAN 5 MG TAB PO SCH ×2 (09:13→22:00)
[2023-01-02] MEDS: amLODIPine BESYLATE 5 MG TAB PO SCH (09:13)
[2023-01-02] MEDS ORDERED: POTASSIUM CHL 20 Meq TABLET PO ONE (11:00)
[2023-01-02] MEDS: DOXYCYCLINE 100MG/250ML 250 ML IV SCH (11:50)
[2023-01-02 17:01] LABS: Basophils # (auto) 0.1 10 ^3/uL (0-0.2); Eosinophils # (auto) 0 10 ^3/uL (0-0.8); Monocytes # (auto) 0.5 10 ^3/uL (0-1.3); Neutrophils # (auto) 14.6 10 ^3/uL (1.6-8.6); Red Cell Distribution Width 18.5 % (11.8-14.3)
[2023-01-02 17:03] LABS: Basophils % (auto) 0.3 % (0.0-2.0); Eosinophils % (auto) 0.1 % (0.0-7.0); Hematocrit 40.1 % (36.0-46.0); Hemoglobin 12.2 g/dL (12.2-16.2); Lymphocytes # (auto) 1.2 10 ^3/uL (0.4-5.4); Lymphocytes % (auto) 7.2 % (10.0-50.0); Mean Corpuscular Hemoglobin 24.4 pg (28.0-32.0); Mean Corpuscular Hgb Conc. 30.4 g/dL (32.0-36.0); Mean Corpuscular Volume 80.3 fL (80.0-100.0); Monocytes % (auto) 3.3 % (0.0-12.0); Neutrophils % (auto) 89.1 % (37.0-80.0); Nucleated Red Blood Cells % 0.3 %; Red Blood Cells 4.99 10^6/uL (4.0-5.20); White Blood Cell 16.4 10^3/uL (4.4-10.8)
[2023-01-02] MEDS ORDERED: FUROSEMIDE 20 MG/2 ML VIAL IV ONE (17:15)
[2023-01-02 17:16] LABS: INR 1.11 (0.9-1.15); Partial Thromboplastin Time 23.5 sec (24.6-33.4)
[2023-01-02 17:21] LABS: Albumin 2.4 g/dL (3.4-5.0); Calcium 8.3 mg/dL (8.5-10.1); Potassium 4.6 mmol/L (3.5-5.1)
[2023-01-02 17:25] LABS: BUN/Creatinine Ratio 47.8 (10.0-20.0); Bilirubin, Total 0.8 mg/dL (0.2-1.0); Total Protein 5.7 g/dL (6.4-8.2)
[2023-01-02] MEDS ORDERED: VANCOMYCIN PER PHARMACY 0 MG IV SCH (17:45)
[2023-01-02] MEDS ORDERED: NOREPINEPHRINE 8 MG/250ML KIT 250 ML IV ONE (17:54)
[2023-01-02] MEDS ORDERED: VANCOMYCIN 1GM/250ML 250 ML IV SCH (18:00)
[2023-01-02] MEDS: CEFEPIME 2 GM in SODIUM CHL 0.9% 50 ML IV SCH (19:29)
[2023-01-02] MEDS ORDERED: NALOXONE HCL 1MG/ML 2ML SYRINGE IV ONE (20:42)
[2023-01-02] MEDS ORDERED: SODIUM CHLORIDE 0.9% 1,000 ML IV SCH (21:00)
[2023-01-02] MEDS ORDERED: DOPamine 1600MCG/ML D5W 250 ML IV ONE (23:14)
[2023-01-02] MEDS ORDERED: DOPamine 1600MCG/ML D5W 250 ML IV SCH (23:15)
[2023-01-02] MEDS ORDERED: PHENYLEPHRINE IV 250 ML IV ONE (23:54)
[2023-01-03] VITALS (26 sets, daily range): BP systolic 33–173; BP diastolic 12–125
[2023-01-03] MEDS ORDERED: VASOPRESSIN 20 UNIT/ML ONE (00:08)
[2023-01-03] MEDS ORDERED: EPINEPHrine HCL 250 ML IV ONE (00:25)
[2023-01-03] MEDS ORDERED: FAMOTIDINE (10MG/ML) 2ML VL IV SCH (00:30)
[2023-01-03] MEDS ORDERED: SODIUM CHLOR 0.9% PF (SALINE LOCK) 10ML VIAL/SYR IV SCH (00:30)
[2023-01-03] MEDS: PHENYLEPHRINE IV 250 ML IV SCH ×4 (00:40→04:56)
[2023-01-03] MEDS: VASOPRESSIN 20 UNITS in SODIUM CHL 0.9% 99 ML IV SCH ×2 (00:40→04:48)
[2023-01-03] MEDS ORDERED: NOREPINEPHRINE 8 MG/250ML KIT 250 ML IV ONE (00:48)
[2023-01-03] MEDS: EPINEPHrine HCL 250 ML IV SCH ×2 (00:50→04:50)
[2023-01-03] MEDS: DOXYCYCLINE 100MG/250ML 250 ML IV SCH (00:51)
[2023-01-03] MEDS: methylPREDNISolone SOD SUCC 40 MG/ML VL IV SCH (00:52)
[2023-01-03 01:26] LABS: Hematocrit 38.1 % (36.0-46.0); Hemoglobin 11.4 g/dL (12.2-16.2)
[2023-01-03 01:28] LABS: Mean Corpuscular Hemoglobin 24.6 pg (28.0-32.0); Mean Corpuscular Hgb Conc. 29.9 g/dL (32.0-36.0); Mean Corpuscular Volume 82.4 fL (80.0-100.0); Red Blood Cells 4.62 10^6/uL (4.0-5.20); Red Cell Distribution Width 18.2 % (11.8-14.3); White Blood Cell 26.4 10^3/uL (4.4-10.8)
[2023-01-03 01:32] LABS: Albumin 2.2 g/dL (3.4-5.0); BUN/Creatinine Ratio 35.8 (10.0-20.0); Calcium 8.7 mg/dL (8.5-10.1); Potassium 5.5 mmol/L (3.5-5.1)
[2023-01-03 01:40] LABS: Total Protein 5.5 g/dL (6.4-8.2)
[2023-01-03 01:42] LABS: Band Neutrophils % (manual) 0; Basophils % (manual) 0 (0.0-2.0); Blast Cells 0; Eosinophils % (manual) 0 (0-7); Metamyelocytes % 0; Myelocytes % 0; Promyelocytes % 0; Reactive Lymphocytes 0
[2023-01-03] MEDS: CEFEPIME 2 GM in SODIUM CHL 0.9% 50 ML IV SCH ×2 (02:00→06:36)
[2023-01-03] MEDS: NOREPINEPHRINE 8 MG/250ML KIT 250 ML IV SCH ×2 (02:30→04:55)
[2023-01-03 02:35] LABS: Lymphocytes % (manual) 6 (10.0-50.0); Monocytes % (manual) 14 (0-12)
[2023-01-03] MEDS ORDERED: EPINEPHrine HCL 1 MG/10 ML SYRG IV ONE (06:58)
== END 2023-01-03 06:59 | DRG 870 ==
LOC: TELE-EAST 18:45 → DOU IN ICU 12-23 17:50 → ICU CENTRL 12-24 01:13 → TELE-WESTW 12-30 21:58 → WEST WING 01-01 22:47 → ICU WEST 01-02 17:28
PROVIDERS: ADMIT Internal Medicine; ATTEND Internal Medicine
PROC: B24BZZ4 Ultrasonography of Heart with Aorta, Transesophageal (ICD-10-PCS; 2022-12-23)
PROC: 5A2204Z Restoration of Cardiac Rhythm, Single (ICD-10-PCS; 2022-12-23)
PROC: 5A1955Z Respiratory Ventilation, Greater than 96 Consecutive Hours (ICD-10-PCS; principal; 2022-12-24)
PROC: 0BH17EZ Insertion of Endotracheal Airway into Trachea, Via Natural or Artificial Opening (ICD-10-PCS; 2022-12-24)
PROC: 4A023N7 Measurement of Cardiac Sampling and Pressure, Left Heart, Percutaneous Approach (ICD-10-PCS; 2022-12-25)
PROC: B2111ZZ Fluoroscopy of Multiple Coronary Arteries using Low Osmolar Contrast (ICD-10-PCS; 2022-12-25)
PROC: B2151ZZ Fluoroscopy of Left Heart using Low Osmolar Contrast (ICD-10-PCS; 2022-12-25)
PROC: 06HY33Z Insertion of Infusion Device into Lower Vein, Percutaneous Approach (ICD-10-PCS; 2022-12-25)
PROC: 5A12012 Performance of Cardiac Output, Single, Manual (ICD-10-PCS; 2023-01-03)
DX: A41.9 Sepsis, unspecified organism (principal); I50.31 Acute diastolic (congestive) heart failure; J18.9 Pneumonia, unspecified organism; J96.21 Acute and chronic respiratory failure with hypoxia; N30.01 Acute cystitis with hematuria; I47.1 Supraventricular tachycardia; J44.0 Chronic obstructive pulmonary disease with (acute) lower respiratory infection; J44.1 Chronic obstructive pulmonary disease with (acute) exacerbation; N17.9 Acute kidney failure, unspecified; I42.0 Dilated cardiomyopathy; Z20.822 Contact with and (suspected) exposure to COVID-19; G89.29 Other chronic pain; I11.0 Hypertensive heart disease with heart failure; I48.91 Unspecified atrial fibrillation; K59.00 Constipation, unspecified; D69.6 Thrombocytopenia, unspecified; E04.2 Nontoxic multinodular goiter; K74.60 Unspecified cirrhosis of liver; M54.50 Low back pain, unspecified
CPT/HCPCS: 36415; 36600; 70450; 71045; 71046; 71275; 76536; 80048; 80053; 80162; 80307; 81001; 82607; 82746; 82805; 82962; 83036; 83605; 83615; 83735; 83880; 84100; 84439; 84443; 84480; 84484; 85007; 85025; 85027; 85379; 85610; 85730; 87040; 87070; 87081; 87205; 87426; 93005; 93306; 93312; 93458; 94002; 94003; 94640; 97110; 97116; 97163; 97530; 99152; C9113; G0378; J0153; J0171; J0330; J0696; J1885; J2250; J2405; J2704; J3480; J3490; J7060